=== PATIENT | female | born 1945 | race Caucasian/White ===

== ENCOUNTER 2021-07-02 06:00 | Day surgery (SDC) | payer MEDICARE, BC ==
[2021-06-28 13:29] VITALS: BMI 29.7
[2021-07-02] MEDS ORDERED: LIDOCAINE 1% (10MG/ML) FOR IV START INTRADERMA PRN (06:14)
[2021-07-02] MEDS ORDERED: LACTATED RINGERS 1,000 ML IV SCH (06:14)
[2021-07-02 06:28] VITALS: TEMP 97.8
[2021-07-02 06:44] LABS: Glucose,Whole Blood 101 mg/dL (75-99)
[2021-07-02] MEDS ORDERED: LIDOCAINE 1% INJ 10MG/ML (20 ML MDV) ONE (07:04)
[2021-07-02] MEDS ORDERED: PROPOFOL 10 MG/ML 20 ML VIAL IV ONE (07:04)
[2021-07-02] MEDS ORDERED: DEXAMETHASONE SOD PHOSPHATE 10 MG/ML 1 ML VIAL ONE (07:04)
--- NOTE | 2021-07-02 07:37 | P.PCN ---
Date of Procedure: 07/02/21 Procedure(s) Performed: Brief history: Patient is a pleasant 76-year-old white female scheduled for an elective upper endoscopy as well as colonoscopy as a part of evaluation of GERD and change in bowel. Patient is status post Basilia fundoplication several years ago. Procedure performed: Esophagogastroduodenoscopy with biopsy Colonoscopy and snare polypectomy Preoperative diagnosis: GERD Change in bowel habits Anesthesia: MAC Procedure: After informed consent was obtained from the patient was brought into the endoscopy unit and IV sedation was administered by anesthesia under continuous monitoring. Initially upper endoscopy was done. The Olympus GF 160 video endoscope was inserted inserted into the mouth and esophagus intubated without any difficulty and was gradually advanced into the stomach and duodenum and carefully examined. The bulb and second part of the duodenum appeared normal. The scope was then withdrawn into the stomach adequately insufflated with air and upon careful examination the antrum and body, cardia and fundus appeared normal. The scope was then withdrawn into the esophagus. The GE junction was located at 36 cm to the incisors. It appeared regular with superficial erosions consistent with LA grade B reflux esophagitis. There was a small tongue of Vera's appearing mucosa is was biopsied. Rest of the esophagus appeared normal. Patient tolerated the procedure well. At this time the patient continued to remain sedation. Initial digital rectal examination was normal. Olympus CF 160 video colonoscope was then inserted into the rectum and gradually advanced to the cecum without any difficulty. Careful examination was performed as the scope was gradually being withdrawn. The prep was very. In the base of the cecum there was a3 millimeters and 5 mm polyp that was removed by snare polypectomy. In the hepatic flexure there were 2 polyps measuring 3 and 4 mm in size removed by snare polypectomy. In the transverse colon there were 2 polyps measuring 5 mm in size removed by snare polypectomy. The descending colon, sigmoid colon and rectum appeared normal. Scattered sigmoid diverticulosis seen. Retroflexion was performed in the rectum and no lesions were noted. Patient tolerated the procedure well. Impression: 1. Upper endoscopy revealed linear erosions in the distal esophagus consistent with LA grade B reflux esophagitis and questionable Vera's esophagus 2. Colonoscopy revealed revealed a) 3 mm and 5 mm cecal polyp status post polypectomy b) 3 mm and 4 mm hepatic flexure polyp status post-polypectomy c) 5 mm transverse transverse colon polyp status post polypectomy d) sigmoid diverticulosis Recommendations: Findings of this examination were discussed with the patient as well as her family. She was advised to follow with the biopsy. The biopsy results adenoma she can have a repeat colonoscopy in 3 years. She was advised to start on MiraLAX 1 scoop daily and continue with a high-fiber diet and fiber supplements.
[2021-07-02 07:44] VITALS: PULSE 63; RESP 18
[2021-07-02 08:05] VITALS: BP 127/70
== END 2021-07-02 08:29 | disposition home or self-care (01) ==
LOC: ORWHC2ENDO 06:00
PROVIDERS: ATTEND Internal Medicine Gastroenterology
DX: D12.3 Benign neoplasm of transverse colon (principal); K22.70 Barrett's esophagus without dysplasia; K57.30 Diverticulosis of large intestine without perforation or abscess without bleeding; K21.9 Gastro-esophageal reflux disease without esophagitis; I10 Essential (primary) hypertension; E78.5 Hyperlipidemia, unspecified; J45.909 Unspecified asthma, uncomplicated; G47.33 Obstructive sleep apnea (adult) (pediatric); E11.9 Type 2 diabetes mellitus without complications; Z79.51 Long term (current) use of inhaled steroids; Z79.899 Other long term (current) drug therapy; Z88.1 Allergy status to other antibiotic agents
CPT/HCPCS: 88305; 45385; 43239; J1100; J2001; J2704

== ENCOUNTER → 2022-12-30 | Outpatient (CLI) | payer MEDICARE, BC ==
--- NOTE | 2022-12-30 12:29 | CT ---
EXAMINATION TYPE: CT chest wo con DATE OF EXAM: 12/30/2022 COMPARISON: None HISTORY: cough, COPD CT DLP: 974.9 mGycm. Automated Exposure Control for Dose Reduction was Utilized. TECHNIQUE: CT scan of the thorax is performed without IV contrast. FINDINGS: There is mild diffuse emphysematous change. There are multiple approximately 5-6 sub-6 mm pulmonary nodules bilaterally. There is no abnormal airspace consolidation or abnormal interstitial density. There is no pleural effusion, pleural thickening or pneumothorax. The great vessels the chest are normal and there is no mediastinal, hilar or axillary adenopathy. There is a large hiatal hernia. Limited scanning the upper abdomen reveals no gross abnormality. IMPRESSION: 1. Mild emphysematous changes. 2. Multiple sub-6 mm pulmonary nodules. Follow-up in 6 months is recommended to assess stability. 3. Large hiatal hernia. 4. No acute cardiopulmonary disease.
== END | disposition home or self-care (01) ==
LOC: RADCTMAIN 11:32
PROVIDERS: ATTEND Internal Medicine Critical Care Medicine
DX: J43.9 Emphysema, unspecified (principal); K44.9 Diaphragmatic hernia without obstruction or gangrene; R91.8 Other nonspecific abnormal finding of lung field; R06.02 Shortness of breath
CPT/HCPCS: 71250; 82785

== ENCOUNTER 2023-02-04 12:50 | Day surgery (SDC) | payer MEDICARE, BC ==
[~2023-02-04 12:50] MED LIST: LACTATED RINGERS 1,000 ML IV SCH
[2023-02-04] MEDS ORDERED: LIDOCAINE 1% (10MG/ML) FOR IV START INTRADERMA ONE (13:22)
[2023-02-04] MEDS ORDERED: LIDOCAINE 2% INJ 20 MG/ML INTRATRACH ONE ×2 (13:29→14:01)
[2023-02-04] MEDS ORDERED: LIDOCAINE 2% GLYDO JELLY 6 ML APPL TOPICAL ONE ×2 (13:29→14:01)
[2023-02-04 13:30] VITALS: TEMP 97.2
[2023-02-04 13:30] LABS: Glucose,Whole Blood 105 mg/dL (70-110)
[2023-02-04] MEDS ORDERED: ONDANSETRON 4 MG/2 ML VIAL ONE (13:35)
[2023-02-04] MEDS ORDERED: ONDANSETRON 4 MG/2 ML VIAL IVP ONE (13:35)
[2023-02-04] MEDS ORDERED: PROPOFOL 10 MG/ML 20 ML VIAL IV ONE (13:57)
[2023-02-04] MEDS ORDERED: LIDOCAINE 1% INJ 10MG/ML (20 ML MDV) ONE (13:57)
--- NOTE | 2023-02-04 14:13 | P.PCN ---
Date of Procedure: 02/04/23 Preoperative Diagnosis: Chronic cough, shortness of breath Postoperative Diagnosis: Severe tracheal bronchomalacia with mucus plugging Procedure(s) Performed: Flexible bronchoscopy, BAL of the left lung/upper lobe Anesthesia: MAC Surgeon: Sumeet Platt Estimated Blood Loss (ml): 0 Pathology: other Condition: stable Disposition: same day Operative Findings: This procedure was done in the endoscopy room. A consent was obtained. A timeout was done. After achieving adequate sedation, the flexible bronchoscope was introduced in the right nostril and was advanced to the upper airway. Examination of the posterior pharynx, larynx, epiglottis, arytenoids and the vocal cords were all within normal limits. A total of 2 mL of 1% lidocaine was applied to the vocal cord and following that the bronchoscope was advanced into the upper trachea. It was obvious that the patient had a severe degree of tracheal bronchomalacia. There was completely dynamic obstruction of the airway with cough and an exhalation maneuvers. At the same time, there was thick cloudy respiratory secretions scattered throughout the lung rangel bilaterally causing plugging of the trachea and bilateral mainstem bronchi and the various segments of the lower lobes. Aspiration was done. Therapeutic airway suctioning was achieved and during the process, the airway inspection was done. There was severe degree of tracheal bronchomalacia. This involved the bilateral mainstem bronchi, right upper lobe bronchus bronchus intermedius had middle lobe bronchus right lower lobe bronchus and left upper lobe bronchus and left lower lobe bronchus. The various segments on the right than the left were inspected. No endobronchial tumors or lesions. Rest or secretions were cloudy and thick Airway patency was achieved. A bronchioloalveolar lavage of the left upper lobe was done. A total of 25 mL of fluid was aspirated from the left upper lobe. This will be sent for microbial cultures and analysis. Therapeutic airway suctioning was done in the bronchoscope was removed and the patient was lam sferred to recovery in stable condition.
[2023-02-04 14:53] VITALS: BP 126/70; PULSE 69; RESP 16
== END 2023-02-04 15:00 | disposition home or self-care (01) ==
LOC: ORWHC2ENDO 12:50
PROVIDERS: ATTEND Internal Medicine Critical Care Medicine
DX: Q32.2 Congenital bronchomalacia (principal); R05.3 Chronic cough; I12.9 Hypertensive chronic kidney disease with stage 1 through stage 4 chronic kidney disease, or unspecified chronic kidney disease; E11.22 Type 2 diabetes mellitus with diabetic chronic kidney disease; N18.2 Chronic kidney disease, stage 2 (mild); F41.9 Anxiety disorder, unspecified; E78.5 Hyperlipidemia, unspecified; G47.33 Obstructive sleep apnea (adult) (pediatric); K21.9 Gastro-esophageal reflux disease without esophagitis; Z88.1 Allergy status to other antibiotic agents; Z87.891 Personal history of nicotine dependence; Z79.51 Long term (current) use of inhaled steroids; Z79.899 Other long term (current) drug therapy
CPT/HCPCS: 87798 ×3; 87496; 87498; 87529; 87502; 87634; 87070; 87205; 87116; 87102; 87206; 31624; J2001 ×2; J2405; J2704

== ENCOUNTER → 2023-02-20 | Outpatient (CLI) | payer MEDICARE, BC | LOC: LABWHC1 12:45 | PROVIDERS: ATTEND Internal Medicine Critical Care Medicine | DX: T78.40XA Allergy, unspecified, initial encounter (principal); Y99.9 Unspecified external cause status | CPT/HCPCS: 36415; 82785; 85008; 86003 ==

== ENCOUNTER → 2023-02-20 | Outpatient (CLI) | payer MEDICARE, BC ==
--- NOTE | 2023-02-20 15:04 | CT ---
EXAMINATION TYPE: CT sinus wo con DATE OF EXAM: 02/20/2023 COMPARISON: None HISTORY: sinusitis CT DLP: 559 mGycm. Automated Exposure Control for Dose Reduction was Utilized. TECHNIQUE: CT scan of the sinuses is performed without contrast, axial images are obtained, coronal r eformatted images are also reviewed. FINDINGS: There is mild mucosal thickening in the sphenoid sinus otherwise the paranasal sinuses are well aerat ed. There are no air-fluid levels, mucous retention cysts or polyps. The osseous hoffmann of the paranasal sinuses are intact and there is no sclerosis or thinning. The ostiomeatal complexes are patent. The nasal cavity is unremarkable with exception mild deviation nasal septum to the right. The intraorbital contents appear normal and symmetric. The mastoid air cells and middle ear cavities are well aerated. IMPRESSION: Minimal mucosal thickening in the sphenoid sinus with no other significant abnormality seen.
== END | disposition home or self-care (01) ==
LOC: RADCTMAIN 13:22
PROVIDERS: ATTEND Internal Medicine Critical Care Medicine
DX: J34.89 Other specified disorders of nose and nasal sinuses (principal); J32.9 Chronic sinusitis, unspecified; R05.3 Chronic cough
CPT/HCPCS: 70486